=== PATIENT | female | born 1955 | race Caucasian/White ===

== ENCOUNTER 2025-04-24 01:47 | Day surgery (SDC) | payer MEDICARE, SELFPAY ==
[2025-04-15 09:48] VITALS: BMI 23.6
--- NOTE | 2025-04-15 10:06 | PC.NURSE ---
Pt concerned about red areas on upper buttock. Is to see information security systems instructor on 04/16/25 to be evaluated. Pt informed to discuss colonoscopy/prep with information security systems instructor to get approval since area could become contaminated with stool during prep. Pt stated understanding. Pt has also been being treated with abx for a dental infection. Last dose of abx was 04/14/25. Pt stated will keep us updated if infection continues.
[2025-04-24 07:21] VITALS: BP 139/73; PULSE 72; RESP 16; TEMP 36.2; O2SAT 98
--- NOTE | 2025-04-24 07:21 | WPDANESEPPF ---
Anes - Initial Pre Proc Eval Procedure: Operation Date: 04/24/25 08:30 Proposed Procedures p Screening Colonoscopy - Matt Boles MD Date/Time: 04/24/25 07:21 Surgeon: Matt Boles MD Pre Op Diagnosis: screening/positive Cologuard Patient Data Age: 70 Gender: F Height: 1.52 m Weight: 55 kg Allergies Allergy/AdvReac Type Severity Reaction Status Date / Time Sulfa (Sulfonamide Allergy Unknown Unknown Verified 04/24/25 07:18 Antibiotics) Home Medications ?Medication ?Instructions ?Recorded ?Confirmed ?Type albuterol sulfate 90 mcg/actuation inhalation 11/27/24 History aerosol inhaler alendronate 70 mg tablet 70 mg PO WEEKLY 11/27/24 04/24/25 History atorvastatin 10 mg tablet 10 mg PO DAILY 11/27/24 04/24/25 History cyclobenzaprine 10 mg tablet 10 mg PO DAILY PRN muscle spasm 11/27/24 04/24/25 History levothyroxine 75 mcg tablet 75 mcg PO DAILY 11/27/24 04/24/25 History loratadine 10 mg tablet (Claritin) 10 mg PO DAILY 11/27/24 04/15/25 History meloxicam 15 mg tablet 15 mg PO DAILY PRN pain 11/27/24 04/24/25 History triamterene 75 1 tablet PO DAILY 11/27/24 04/24/25 History mg-hydrochlorothiazide 50 mg tablet calcium 600 mg (as carbonate)-vit 1 tablet PO DAILY 04/15/25 04/24/25 History D3 20 mcg (800 unit) chewable tablet (Caltrate plus D) cholecalciferol (vitamin D3) 50 50 mcg PO DAILY 04/15/25 04/24/25 History mcg (2,000 unit) tablet cyanocobalamin (vitamin B-12) 5,000 mcg sublingual DAILY 04/15/25 04/24/25 History 5,000 mcg sublingual tablet (Vitamin B-12) glucosamine 750 [id number] 1 tablet PO ONCE 04/15/25 04/24/25 History no1 644 mg-C 30 mg-chuck 1 mg tablet (Osteo Bi-Flex Triple Strength) Patient hx anesthesia problems: none Family hx anesthesia problems: none Results Review: All pre-operative results and documents have been reviewed as part of the pre-operative evaluation. [facility] Past Medical History Medical History Thyroid disease Osteoporosis Skin cancer Anxiety Asthma Allergies Family History Family History Mother Hypertension Grandparent Diabetes mellitus Heart disease Grandparent Cancer Other Family history of malignant melanoma Social History Social History Smoking packs per day: 1 Smoking cigarettes per day: 20.0 Smoking status: Former smoker Tobacco type: cigarettes Second hand tobacco smoke exposure: Yes Additional smoking assessment comments: As teenager Alcohol intake: current Substance use: never Substance use type: does not use Living arrangements: with family Occupation/Education: retired Gender identity (if verbalized by the patient): Female Spiritual care concerns: No Anes - Eval Final PreProcedure Day of Procedure 04/24/25 07:21 Patient weight: normal Lungs: normal air movement Airway: Mallampati scale class II Neurological: alert and oriented Last oral intake: >/= 8 hours ASA classification: II Emergent: no Anesthetic plan: proceed Anesthesia type and monitoring: general GIVS and standard monitoring Results Review: All pre-operative results and documents have been reviewed as part of the pre-operative evaluation. Hyperlipidemia, hypothyroidism, asthma is stable. Informed Consent: The patient's anesthetic plan and its attendant risks and benefits were discussed with the patient/family/POA. Questions were solicited and answers provided to the satisfaction of the patient/family/POA.
[2025-04-24] MEDS: LACTATED RINGERS 1,000 ML 150 ML IV CONT (07:30)
--- NOTE | 2025-04-24 08:28 | SUR.OPER ---
Stitches to right buttock noted intraoperatively. Tegaderm placed over stitches to prevent contamination.
--- NOTE | 2025-04-24 09:12 | S_PTH ---
PATIENT: Mariposa Nieves LOC: [facility] U#:[id number] AGE/SX: 70/F ROOM: RE04/24/[address]: Matt Boles MD : 1955 BED: DIS: 04/24/2025 SPEC #: [id number] RECD: 04/24/25 10:08 STATUS: DIETER REAddy #: [id number] NEGRO: 04/24/25 09:[address]: Matt Boles DEPT: [facility] Surgical RECD BY: Doris Georges ENTERED: 04/24/25 10:11 SP TYPE: Surgical OTHR DR: Luis Champion MD Tissues: A - Colon Polypectomy B - Colon Polypectomy C - Colon Polypectomy D - Colon Polypectomy Procedures: Hematoxylin and Eosin Stain Gross and Microscopic Level 4
[2025-04-24 09:14] VITALS: BP 126/78; PULSE 63; RESP 21; O2SAT 98
--- NOTE | 2025-04-24 09:19 | PM.IMHP ---
H&P: HPI History of Present Illness Date/Time: 04/24/25 09:19 Chief Complaint: Positive Cologuard Narrative: This is the patient's first colonoscopy. She has recently been found to be Cologuard positive. There are no GI symptoms and there is no family history of colorectal cancer. Review of Systems Review of Systems: All systems reviewed & are unremarkable except as noted in HPI and below PMFSH Past Medical History Medical History Thyroid disease Osteoporosis Skin cancer Anxiety Asthma Allergies Family History Family History Mother Hypertension Grandparent Diabetes mellitus Heart disease Grandparent Cancer Other Family history of malignant melanoma Social History Social History Smoking packs per day: 1 Smoking cigarettes per day: 20.0 Smoking status: Former smoker Tobacco type: cigarettes Second hand tobacco smoke exposure: Yes Additional smoking assessment comments: As teenager Alcohol intake: current Substance use: never Substance use type: does not use Living arrangements: with family Occupation/Education: retired Gender identity (if verbalized by the patient): Female Spiritual care concerns: No Meds Home Medications and Allergies Home Medications ?Medication ?Instructions ?Recorded ?Confirmed ?Type albuterol sulfate 90 mcg/actuation inhalation 11/27/24 History aerosol inhaler alendronate 70 mg tablet 70 mg PO WEEKLY 11/27/24 04/24/25 History atorvastatin 10 mg tablet 10 mg PO DAILY 11/27/24 04/24/25 History cyclobenzaprine 10 mg tablet 10 mg PO DAILY PRN muscle spasm 11/27/24 04/24/25 History levothyroxine 75 mcg tablet 75 mcg PO DAILY 11/27/24 04/24/25 History loratadine 10 mg tablet (Claritin) 10 mg PO DAILY 11/27/24 04/15/25 History meloxicam 15 mg tablet 15 mg PO DAILY PRN pain 11/27/24 04/24/25 History triamterene 75 1 tablet PO DAILY 11/27/24 04/24/25 History mg-hydrochlorothiazide 50 mg tablet calcium 600 mg (as carbonate)-vit 1 tablet PO DAILY 04/15/25 04/24/25 History D3 20 mcg (800 unit) chewable tablet (Caltrate plus D) cholecalciferol (vitamin D3) 50 50 mcg PO DAILY 04/15/25 04/24/25 History mcg (2,000 unit) tablet cyanocobalamin (vitamin B-12) 5,000 mcg sublingual DAILY 04/15/25 04/24/25 History 5,000 mcg sublingual tablet (Vitamin B-12) glucosamine 750 [id number] 1 tablet PO ONCE 04/15/25 04/24/25 History no1 644 mg-C 30 mg-chuck 1 mg tablet (Osteo Bi-Flex Triple Strength) Allergies Allergy/AdvReac Type Severity Reaction Status Date / Time Sulfa (Sulfonamide Allergy Unknown Unknown Verified 04/24/25 07:18 Antibiotics) Vital Signs Vital Signs - 24 hr 04/24/25 07:21 04/24/25 09:14 Temperature 97.1 F L Pulse Rate 72 63 Respiratory Rate 16 21 H Blood Pressure 139/73 126/78 Pulse Oximetry 98 98 Oxygen Delivery Room Air Room Air Exam Const: General: cooperative and healthy appearing Resp: Effort & Inspection: normal respiratory effort and able to speak in complete sentences Auscultation: clear to auscultation bilaterally Cardio: Rate: regular rate Rhythm: regular rhythm GI: Inspection: normal to inspection GI Palp: No No hepatosplenomegaly present Auscultation: normal bowel sounds Rectal Exam: deferred Skin: General skin exam: normal color Psych: Appearance: grossly normal Mental Status: mental status grossly normal Assessment and Plan Assessment and plan (1) Positive colorectal cancer screening using Cologuard test: Code(s): R19.5 - Other fecal abnormalities Status: Acute Assessment and Plan: The patient is deemed a good candidate for the procedure. Consent signed. Will proceed.
[2025-04-24 09:24] VITALS: BP 142/80; PULSE 62; RESP 25; O2SAT 100
[2025-04-24 09:34] VITALS: BP 131/70; PULSE 60; RESP 14; O2SAT 100
== END 2025-04-24 09:48 | disposition home or self-care (01) ==
PROVIDERS: PCP Family Medicine; Referring Provider Family Medicine; Visit Provider Internal Medicine Gastroenterology
PROC: 0DJD8ZZ Inspection of Lower Intestinal Tract, Via Natural or Artificial Opening Endoscopic (ICD-10-PCS; CPT 45378; principal; 2025-04-24 08:30)
DX: Z12.11 Encounter for screening for malignant neoplasm of colon (principal); R19.5 Other fecal abnormalities; D12.2 Benign neoplasm of ascending colon; D12.0 Benign neoplasm of cecum; D12.3 Benign neoplasm of transverse colon; K57.30 Diverticulosis of large intestine without perforation or abscess without bleeding
CPT/HCPCS: 45381; 45385; 88305; J2003; J2405; J2704; J7120